=== PATIENT | female | born 1985 | race Caucasian/White ===

== ENCOUNTER 2017-04-16 14:56 | Emergency (ER) | payer OTHER ==
[2017-04-16 15:07] VITALS: BP 146/93
--- NOTE | 2017-04-16 15:19 | EDM.PDOC ---
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 She was swinging hanging by her arms on a rope and struck a wall at her right lateral lower mid to lower ribs. Denies loss of consciousness, head injury, back injury, abdominal pain or flank pain. Severity: Severe Improves with: Reports: None Worsens with: Reports: None Associated Symptoms: Reports: No Other Symptoms Right Thoracic Pain Score (Numeric/FACES): 6 - Related Data Allergies Allergy/AdvReac Type Severity Reaction Status Date / Time No Known Allergies Allergy Verified 04/16/17 15:12 Home Meds: Home Meds Levonorgestrel [Mirena] 1 each IY ASDIRECTED 04/16/17 [History] traZODone 50 mg PO BEDTIME 04/16/17 [History] Social & Family History - Family History Family Medical History: Noncontributory ED ROS GENERAL - Review of Systems Review Of Systems: ROS reveals no pertinent complaints other than HPI. ED EXAM, GENERAL - Physical Exam Exam: See Below Exam Limited By: No Limitations General Appearance: Alert, WD/WN, No Apparent Distress Head: Atraumatic, Normocephalic Neck: Normal Inspection, Supple, Non-Tender, Full Range of Motion Respiratory/Chest: No Respiratory Distress, Lungs Clear, No Accessory Muscle Use , Decreased Breath Sounds. No: Chest Non-Tender (acutely tender to palpation at the right lateral mid to lower ribs with faint contusion. No bony crepitus. Skin is intact.) Cardiovascular: Normal Peripheral Pulses, Regular Rate, Rhythm, No Edema, No Gallop, No JVD, No Murmur, No Rub GI/Abdominal: Normal Bowel Sounds, Soft, Non-Tender, No Organomegaly, No Distention, No Abnormal Bruit, No Mass Back Exam: Decreased Range of Motion (due to right rib pain.). No: CVA Tenderness (L), CVA Tenderness (R), Vertebral Tenderness Extremities: Normal Inspection, Normal Range of Motion, Non-Tender, Normal Capillary Refill, No Pedal Edema Neurological: Alert, Oriented, CN II-XII Intact, Normal Cognition, Normal Gait, No Motor/Sensory Deficits Psychiatric: Normal Affect, Normal Mood Skin Exam: Warm, Dry, Intact, Normal Color, No Rash Lymphatic: No Adenopathy Course - Vital Signs Last Recorded V/S: Last Vital Signs Temp 36.7 C 04/16/17 15:05 Pulse 84 04/16/17 15:05 Resp 24 H 04/16/17 15:05 BP 146/93 H 04/16/17 15:05 Pulse Ox 99 04/16/17 15:05 - Orders/Labs/Meds Meds: Medications Discontinued Medications Generic Name Dose Route Start Last Admin Trade Name Joseq PRN Reason Stop Dose Admin Ketorolac Tromethamine 60 mg 04/16/17 15:28 04/16/17 15:46 Toradol IM 04/16/17 15:29 60 mg ONETIME ONE Administration - Radiology Interpretation Free Text/Narrative:: Right ribs: Per rad report no fractures. Departure - Departure Time of Disposition: 16:25 Disposition: Home, Self-Care 01 Condition: fair Clinical Impression: Contusion of rib on right side Qualifiers: Encounter type: initial encounter Qualified Code(s): S20.211A - Contusion of right front wall of thorax, initial encounter - Discharge Information Instructions: Contusion, [id number], Chest Wall Pain, [id number] Forms: ED Department Discharge Additional Instructions: RX: Ibuprofen 800mg. [place] 5mg/325mg. Rest and ice pack to the area of pain. She is to take deep breaths every couple of hours throughout the day to prevent pneumonia. Follow up in clinic next week.
[2017-04-16] MEDS ORDERED: Ketorolac 30 MG/ML SDV IM ONE (15:28)
--- NOTE | 2017-04-16 16:12 | CR ---
Clinical history: 31-year-old female injured right ribs. Interpretation: AP oblique views of the right chest reveal no sign of acute right rib fracture, underlying lung cont usion, atelectasis, pleural effusion or pneumothorax. AP thoracolumbar spine unremarkable. CONCLUSION: No right rib fracture.
== END 2017-04-16 16:49 | disposition home or self-care (01) ==
LOC: DL.ED 14:56
DX: S20.211A Contusion of right front wall of thorax, initial encounter (principal); X50.1XXA Overexertion from prolonged static or awkward postures, initial encounter
CPT/HCPCS: 71100; 96372; 99283; J1885